=== PATIENT | female | born 1975 | race Caucasian/White ===

== ENCOUNTER 2021-02-26 14:35 | Emergency (ER) | payer OTHER ==
[~2021-02-26] VITALS: Ht 162.6 cm; Wt 65.8 kg
[2021-02-26 15:12] LABS: ABSOLUTE NEUTROPHILS 1.7 thou/uL (1.4-8.2); BASOPHILS 0.7 % (0.0-2.0); HEMATOCRIT 39.7 % (37.0-47.0); MCH 31.3 pg (26.0-34.0); MCHC 32.8 g/dL (28.0-37.0); MCV 95.4 fL (80.0-100.0); MONOCYTES 12.6 % (1.0-8.0); PLATELET COUNT 151 thou/uL (150-400); POLYS 46.7 % (36.0-66.0); RBC 4.16 mil/uL (4.20-5.00); WBC 3.7 thou/uL (4.0-11.0)
[2021-02-26 15:16] LABS: CALCIUM 8.6 mg/dL (8.5-10.1); CREATININE 0.7 mg/dL (0.6-1.0); POTASSIUM 3.8 mmol/L (3.5-5.1)
[2021-02-26 15:26] LABS: ALBUMIN 3.4 g/dL (3.4-5.0); TOTAL BILIRUBIN 0.2 mg/dL (0.2-1.0); TOTAL PROTEIN 6.3 g/dL (6.4-8.2)
[2021-02-26] MEDS ORDERED: AZITHROMYCIN 2250 MG PO (17:45)
[2021-02-26 17:57] VITALS: BP 130/85
--- NOTE | 2021-02-28 07:37 | EKG ---
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: TESFAYE BAILON : 1975 Requested By: Daniela Moreno Order Number: [id number] MD: Teodoro Cuevas Measurements Intervals [place] Rate: 65 P: 55 PA: 181 QRS: 63 QRSD: 86 T: 35 QT: 379 QTc: 394 Interpretive Statements Sinus rhythm Probable left atrial enlargement No previous ECG available for comparison Electronically Signed On 02-28-2021 7:37:39 [employer] OFFICER by Teodoro Cuevas [email or web address] <ELECTRONICALLY SIGNED> By: Teodoro Cuevas MD, [facility] 02/28/21 0737 1438 1438 Teodoro Cuevas MD, FACC /EPI
== END 2021-02-26 17:57 | disposition home or self-care (01) ==
LOC: ER 14:35
PROVIDERS: Emergency Medicine
DX: U07.1 COVID-19 (principal); R07.89 Other chest pain